=== PATIENT | male | born 1975 | race Caucasian/White ===

== ENCOUNTER 2017-12-05 15:32 | Emergency (ER) | payer SELFPAY ==
[2017-12-05] MEDS ORDERED: OXYMETAZOLINE HCL 0.05% NASAL SPRAY 15 ML BOTTLE NASL ONE (15:50)
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
[2017-12-05] MEDS ORDERED: LIDOCAINE 2% VISCOUS SOLN 20 ML UDCUP PO ONE (15:58)
[2017-12-05] MEDS ORDERED: THROMBIN (BOVINE) 5000 UNIT EPITAXIS KIT TP ONE (16:30)
--- NOTE | 2017-12-05 18:48 | ER Document Report ---
ED General - General Chief Complaint: Nose Bleed Stated Complaint: NOSE BLEED Time Seen by Provider: 12/05/17 15:47 Mode of Arrival: Ambulatory Notes: Patient is a 42-year-old male that presents to the emergency department for chief complaint of nosebleed. Patient reports earlier today he had a large piece of drywall fall onto his nose, causing a laceration and nosebleed out of his right nostril. He tried methods at home to stop the bleeding, but it continued to be decided to come to the emergency department. Multiple treatments were applied in triage, without success, patient was brought to the back of the emergency department. He denies having any lightheadedness, dizziness, headache. Reports that he has been spitting up a lot of blood, because of it running down the back of his throat. He has had nosebleeds in the past but nothing like this before. He reports prior history of nasal septum fracture and deviation. Patient reports he is up-to-date with his tetanus vaccination. Past Medical History: Denies chronic medical conditions Past Surgical History: Denies major and relevant surgical history Social History: Admits to smoking cigarettes daily, and alcohol daily, admits to marijuana use Family History: Reviewed and noncontributory for presenting illness Allergies: Reviewed, see documented allergy list. REVIEW OF SYSTEMS: Unless otherwise stated in this report the patient's positive and negative responses for review of systems for constitutional, eyes, ENT, cardiovascular, respiratory, gastrointestinal, neurological, genitourinary, musculoskeletal, and integumentary systems and related systems to the presenting problem are either as stated in the HPI or were not pertinent or were negative for the symptoms and/or complaints related to the presenting medical problem. PHYSICAL EXAMINATION: Vital signs reviewed, nursing noted reviewed. GENERAL: Well-appearing, well-nourished and in mild distress HEAD: Atraumatic, laceration noted to the nasal bridge, superficial, does not enter the subcutaneous tissues. EYES: Eyes appear normal, extraocular movements intact, sclera anicteric, conjunctiva are normal. ENT: Right nares has significant bleeding, not pulsatile, without identifiable vessel, noted posterior bleeding down the back of the throat as well. The left nares appears unremarkable. Moist mucous membranes. NECK: Normal range of motion, supple without lymphadenopathy LUNGS: Breath sounds clear to auscultation bilaterally and equal. No wheezes rales or rhonchi. HEART: Regular rate and rhythm without murmurs ABDOMEN: Soft, nontender, normoactive bowel sounds. No rebound, guarding, or rigidity. No masses appreciated. EXTREMITIES: Nontender, good range of motion, no pitting or edema. NEUROLOGICAL: No focal neurological deficits. Moves all extremities spontaneously Motor and sensory grossly intact on exam. PSYCH: Anxious, normal affect. SKIN: Warm, Dry, normal turgor, no rashes or lesions noted on exposed skin TRAVEL OUTSIDE OF THE [place] IN LAST 30 DAYS: No - Related Data Allergies/Adverse Reactions: No Known Allergies Allergy (Unverified 12/05/17 15:34) Past Medical History - General Information source: Patient - Social History Smoking Status: Current Every Day Smoker Frequency of alcohol use: 2 beers a day Drug Abuse: Marijuana Family History: Reviewed & Not Pertinent Patient has suicidal ideation: No Patient has homicidal ideation: No Renal/ Medical History: Denies: Hx Peritoneal Dialysis Physical Exam - Vital signs Vitals: Temp Pulse BP Pulse Ox 97.5 F 92 120/84 97 12/05/17 15:37 12/05/17 15:37 12/05/17 15:37 12/05/17 15:37 Course - Re-evaluation Re-evalutation: Patient seen and examined vital signs reviewed. Patient was offered imaging of his face, however he declined, he did not want to be stuck for any blood work either. Laboratory data and imaging were ordered as appropriate for the patient's presenting symptoms and complaint, with consideration of any critical or life threatening conditions that may be associated with their obtained history and exam as noted above. Patient was treated with multiple methods to stop his epistaxis, including frontal nasal packing, Yara, Rhino Rocket, I also tried using commercially available thrombin product, without success, the patient was also had atomized TXA, with Murocel soaked with TXA as well, without success to stop the patient' s epistaxis. There is no identifiable vessel, for cauterization, direct pressure was applied. The patient was re-evaluated and was still having bleeding from the right nares. Evaluation was most consistent with posterior epistaxis Results were discussed with the patient at this point after careful consideration I feel that that patient should be transferred to [facility], for ENT evaluation and treatment, case discussed with Dr Maxi Sam. This was discussed with the patient that it is in the best interest for their care to be transferred, the risks and benefits of transfer were discussed, including but not limited to clinical deterioration during transport, respiratory distress, and potential for traumatic injuries. Patient agreed with this plan of care. *Note is created using voice recognition software and may contain spelling, syntax or grammatical errors. - Vital Signs Vital signs: Temp Pulse Resp BP Pulse Ox 97.4 F 96 18 126/84 H 97 12/05/17 21:35 12/05/17 21:35 12/05/17 21:35 12/05/17 21:35 12/05/17 21:35 Critical Care Note - Critical Care Note Total time excluding time spent on procedures (mins): 40 Comments: Critical care time 40 minutes exclusive from separate billable procedures for a patient requiring complex medical decision making, and high potential for clinical deterioration, multiple reassessments, multiple attempts to stop the patient's ongoing hemorrhage, and interventions. Time spent obtaining history from patient or surrogate, discussions with consultants, development of treatment plan with patient or surrogate, evaluation of patient's response to treatment, examination of patient, ordering and performing treatments and interventions, ordering and review of laboratory studies, re-evaluation of patient's condition, ordering and review of radiographic studies and review of old charts Discharge - Discharge Clinical Impression: Posterior epistaxis Nasal laceration Qualifiers: Encounter type: initial encounter Qualified Code(s): S01.21XA - Laceration without foreign body of nose, initial encounter Condition: Stable Disposition: [facility] Referrals: LOCALMD,NO [NO LOCAL MD] - Follow up as needed
[2017-12-05] MEDS ORDERED: TRANEXAMIC ACID INJ/PF 1,000 MG/10 ML SDV IV ONE (19:21)
[2017-12-05 22:08] VITALS: BP 126/84
== END 2017-12-05 21:40 | disposition short-term general hospital (02) ==
LOC: ER 15:32
PROC: 0W3Q7ZZ Control Bleeding in Respiratory Tract, Via Natural or Artificial Opening (ICD-10-PCS; principal; 2017-12-05)
DX: S01.21XA Laceration without foreign body of nose, initial encounter (principal); R04.0 Epistaxis; X58.XXXA Exposure to other specified factors, initial encounter; F17.200 Nicotine dependence, unspecified, uncomplicated
CPT/HCPCS: 99291; 96365; 96366; 30905; J3490 ×3